=== PATIENT | female | born 1930 | race Caucasian/White ===

== ENCOUNTER → 2016-07-16 | Outpatient (CLI) | payer MEDICARE, OTHER ==
[~2016-07-16] MED LIST: AMLO5TAB PO; BAYER ASPIRIN R81 MG; BISOPROLOL 5MG T5 MG PO; CARVEDILOL 1212.5 MG PO; CLONIDINE0.1 M1 PO; CLONIDINE0.1 MG PO; DESMOPRESSIN0.2 MG PO; DOCUSATE SODIU100 MG PO; EFFEXOR 37.5M37.5 MG PO; HYDROCHLOROTHIA25 M1 PO; IMDUR 30MG. TAB30 MG PO; LASIX40 MG PO; LEVAQUIN 750 M750 MG PO; LEVOTHYROXINE0.05 MG PO; LISINOPRIL 20MG20 MG PO; MACROBID 100MG100 MG PO; OMNICEF 300 MG300 MG PO; Oxybutynin5 MG PO; POTASSIUM CHLO20 ME2 PO; PRAVACHOL 20MG.20 MG PO; PRAVASTATIN 20M20 MG PO; PRILOSEC20 M1 PO; PYRIDIUM 200MG200 MG PO; TIROSINT75 MCG; VESICARE5 MG PO; ZANTAC 300300 MG PO; ZEBETA10 MG PO; ZYRTEC 10MG TAB10 MG PO
== END ==
LOC: RT 12:52
DX: R07.9 Chest pain, unspecified (principal); I25.10 Atherosclerotic heart disease of native coronary artery without angina pectoris; R94.31 Abnormal electrocardiogram [ECG] [EKG]